=== PATIENT | female | born 1995 | race Caucasian/White ===

== ENCOUNTER 2018-02-06 16:31 | Outpatient (CLI) | payer OTHER | END 2018-02-06 20:10 | disposition home or self-care (01) | LOC: OBS/DEL 16:31 | DX: O26.892 Other specified pregnancy related conditions, second trimester (principal); R10.2 Pelvic and perineal pain; Z34.02 Encounter for supervision of normal first pregnancy, second trimester ==

== ENCOUNTER 2018-03-10 18:07 | Outpatient (CLI) | payer OTHER ==
[2018-03-10] MEDS ORDERED: PRENATAL 19 CH1 EAC1 PO (20:33)
== END 2018-03-11 13:13 | disposition home or self-care (01) ==
LOC: OBS/DEL 18:07
DX: O23.43 Unspecified infection of urinary tract in pregnancy, third trimester (principal); O60.03 Preterm labor without delivery, third trimester; Z34.83 Encounter for supervision of other normal pregnancy, third trimester

== ENCOUNTER 2018-05-14 15:46 | Inpatient (IN) | payer OTHER ==
[~2018-05-14] VITALS: Ht 175.3 cm; Wt 3.2 kg
[~2018-05-14 15:46] MED LIST: PRENATAL 19 CH1 EAC1 PO
[2018-05-15] MEDS ORDERED: ZANTAC150 M3 PO (08:49)
== END 2018-05-18 14:35 | DRG 766 ==
LOC: OB/GYN 05-15 07:00 → O/R 05-15 08:17 → OB/GYN 05-15 15:27
PROVIDERS: Obstetrics & Gynecology
PROC: 0U9 Female Reproductive System, Drainage (ICD-10-PCS; 2018-05-15)
PROC: 0U900ZX Drainage of Right Ovary, Open Approach, Diagnostic (ICD-10-PCS; 2018-05-15)
PROC: 0UB10ZZ Excision of Left Ovary, Open Approach (ICD-10-PCS; 2018-05-15)
PROC: 4A033R1 Measurement of Arterial Saturation, Peripheral, Percutaneous Approach (ICD-10-PCS; 2018-05-15)
PROC: 4A1HXCZ Monitoring of Products of Conception, Cardiac Rate, External Approach (ICD-10-PCS; 2018-05-15)
PROC: 10D00Z1 Extraction of Products of Conception, Low, Open Approach (ICD-10-PCS; principal; 2018-05-15 07:00)
DX: O65.5 Obstructed labor due to abnormality of maternal pelvic organs (principal); O32.8XX0 Maternal care for other malpresentation of fetus, not applicable or unspecified; O34.83 Maternal care for other abnormalities of pelvic organs, third trimester; Z3A.39 39 weeks gestation of pregnancy; Z37.0 Single live birth

== ENCOUNTER 2022-08-24 08:28 | Outpatient (CLI) | payer OTHER ==
[~2022-08-24 08:28] MED LIST changes: +ZANTAC150 M3 PO
== END 2022-08-24 09:45 | disposition home or self-care (01) ==
LOC: PRENATAL 08:28
PROVIDERS: ATTEND Obstetrics & Gynecology Maternal & Fetal Medicine
DX: O36.80X0 Pregnancy with inconclusive fetal viability, not applicable or unspecified (principal); O34.219 Maternal care for unspecified type scar from previous cesarean delivery; Z36.0 Encounter for antenatal screening for chromosomal anomalies; O34.80 Maternal care for other abnormalities of pelvic organs, unspecified trimester

== ENCOUNTER 2022-10-26 13:15 | Outpatient (CLI) | payer OTHER | END 2022-10-26 15:15 | disposition home or self-care (01) | LOC: PRENATAL 13:15 | PROVIDERS: ATTEND Obstetrics & Gynecology Maternal & Fetal Medicine | DX: O35.9XX0 Maternal care for (suspected) fetal abnormality and damage, unspecified, not applicable or unspecified (principal); O34.219 Maternal care for unspecified type scar from previous cesarean delivery; Z3A.23 23 weeks gestation of pregnancy ==

== ENCOUNTER 2022-12-26 09:29 | Outpatient (CLI) | payer OTHER | END 2022-12-26 10:35 | disposition home or self-care (01) | LOC: PRENATAL 09:29 | PROVIDERS: ATTEND Obstetrics & Gynecology Maternal & Fetal Medicine | DX: O26.849 Uterine size-date discrepancy, unspecified trimester (principal); O34.80 Maternal care for other abnormalities of pelvic organs, unspecified trimester; O36.8199 Decreased fetal movements, unspecified trimester, other fetus; O34.219 Maternal care for unspecified type scar from previous cesarean delivery; Z3A.32 32 weeks gestation of pregnancy ==

== ENCOUNTER 2023-01-29 20:06 | Inpatient (IN) | payer OTHER ==
[~2023-01-29] VITALS: Ht 172.7 cm; Wt 3.2 kg
[2023-02-04] MEDS ORDERED: IBU800 MG PO (11:39)
[2023-02-04] MEDS ORDERED: COLACE100 MG PO (11:39)
== END 2023-02-04 17:58 | disposition home or self-care (01) | DRG 788 ==
LOC: LDR 20:06 → OB/GYN 20:06
PROVIDERS: ADMIT Student in an Organized Health Care Education/Training Program; ATTEND Student in an Organized Health Care Education/Training Program
PROC: 4A1HXCZ Monitoring of Products of Conception, Cardiac Rate, External Approach (ICD-10-PCS; 2023-01-29)
PROC: 0UT10ZZ Resection of Left Ovary, Open Approach (ICD-10-PCS; 2023-02-01)
PROC: 10D00Z1 Extraction of Products of Conception, Low, Open Approach (ICD-10-PCS; principal; 2023-02-01 13:00)
DX: O13.4 Gestational [pregnancy-induced] hypertension without significant proteinuria, complicating childbirth (principal); D27.1 Benign neoplasm of left ovary; O34.83 Maternal care for other abnormalities of pelvic organs, third trimester; P03.89 Newborn affected by other specified complications of labor and delivery; Z3A.37 37 weeks gestation of pregnancy; Z37.0 Single live birth; Z20.822 Contact with and (suspected) exposure to COVID-19